=== PATIENT | female | born 1965 | race Caucasian/White ===

== ENCOUNTER 2020-10-28 07:30 | Day surgery (SDC) | payer OTHER, SELFPAY ==
[2020-10-24 13:09] VITALS: BMI 26.4
--- NOTE | 2020-10-26 15:30 | HO.ANESPROP2 ---
Documented by User: Mabel Morin 10/26/20 15:31 HPI - Anesthesia Eval Consult details Narrative: 55yo F for Colonoscopy [facility] Past Medical History Medical History Cancer History of cellulitis Hx of Sjogren's disease Surgical History Surgical History H/O colonoscopy Hx of hysterectomy Social History Social History Smoking Status: Former smoker Smoking Quit Date: >10 yr Use of substances other than those prescribed or required for medical reasons: No Advance Directives Information Provided: No Meds Allergies Allergy/AdvReac Type Severity Reaction Status Date / Time No Known Allergies Allergy Verified 10/24/20 13:12 Home Medications Medication Instructions Recorded Confirmed Type No Known Home Meds 10/24/20 10/24/20 History Exam Exam Date and Time: October 26, 2020 1530 Height,Weight and Vital Signs: Height 5 ft 5.25 in Weight 72.575 kg Assessment and Plan Assessment Anesthesia Assessment: Chart Reviewed Documented by User: Tammy Akbar 10/28/20 08:25 [facility] Past Medical History Medical History Cancer History of cellulitis Hx of Sjogren's disease Family History Family history of problems with anesthesia: No Surgical History Surgical History H/O colonoscopy Hx of hysterectomy History of Problems with Anesthesia: No Social History Social History Smoking Status: Former smoker Smoking Quit Date: >10 yr Use of substances other than those prescribed or required for medical reasons: No Advance Directives Information Provided: No Meds Allergies Allergy/AdvReac Type Severity Reaction Status Date / Time No Known Allergies Allergy Verified 10/24/20 13:12 Home Medications Medication Instructions Recorded Confirmed Type No Known Home Meds 10/24/20 10/24/20 History Exam Height,Weight and Vital Signs: Vital Signs Temp Pulse Resp BP Pulse Ox 10/28/20 08:05 96.8 F 98 16 133/77 100 Airway Mallampati Class: II TM Dist: >3cm Neck ROM: Full Partial: Lower Loose/Missing/Broken Teeth: No Heart: RRR Lungs: CTAB Assessment and Plan Assessment Anesthesia Assessment: Anesthesia Plan Discussed and Chart Reviewed Final Anesthetic Review NPO: Yes ASA Class: II Final Preanesthetic Review: No Changes in Pt Med Stat, Meds/Allgs Chart Reviewed, Consent Obtained/Reviewed and Anes Risks/Benef Reviewed Patient Risk: Low Procedure Risk: Low Anesthetic Plan Anesthetic Plan: MAC: Disposition: Standard PACU
[2020-10-28 08:05] VITALS: BP 133/77; PULSE 98; RESP 16; TEMP 36; O2SAT 100
[2020-10-28 09:36] VITALS: BP 94/49; PULSE 77; RESP 12; TEMP 36.5; O2SAT 99
--- NOTE | 2020-10-28 09:36 | PM.OP ---
Brief Operative Note Date of Service: 10/28/20 Pre-op diagnosis: Screening, History of colon polyps Post-op diagnosis: other (Diverticulosis, Internal hemorrhoids) Procedure: Colonoscopy to cecum and TI Surgeon: Levon Serrano Anesthesia: MAC Estimated blood loss (mL): 0 Pathology: none sent Condition: stable Disposition: PACU
[2020-10-28 09:51] VITALS: BP 104/59; PULSE 76; RESP 16; O2SAT 100
--- NOTE | 2020-10-28 09:55 | OP_ITS ---
SURGEON: Levon Serrano MD INDICATIONS: The patient presents for followup of colorectal cancer screening and personal history of tubular adenoma of the colon. Full consent was obtained from her for this, including risks of bleeding and perforation. PREOPERATIVE DIAGNOSIS: POSTOPERATIVE DIAGNOSIS: PROCEDURE PERFORMED: Colonoscopy to the cecum and terminal ileum. ESTIMATED BLOOD LOSS: COMPLICATIONS: ANESTHESIA: Monitored anesthesia care. ASSISTANTS: SPECIMENS: PREOPERATIVE DIAGNOSES: Colorectal cancer screening and personal history of tubular adenoma of the colon. POSTOPERATIVE DIAGNOSES: Colorectal cancer screening and personal history of tubular adenoma of the colon, sigmoid diverticulosis, and small internal hemorrhoids. DESCRIPTION OF PROCEDURE: The patient was placed in the left lateral decubitus position. The digital rectal exam revealed no abnormalities. The Olympus video pediatric colonoscope was entered into the rectum and advanced easily to the cecum. Once in the cecum, I did identify normal-appearing cecal pouch with appendiceal orifice and a normal-appearing ileocecal valve. The terminal ileum was cannulated and appeared normal. The scope was withdrawn back in the colon. The entire cecum and ileocecal valve appeared normal. The scope was slowly withdrawn assessing all mucosal surfaces carefully. Preparation was excellent. I did not visualize any sign of polyps, colitis, nor angiodysplasia. There was a mild amount of sigmoid diverticulosis. In the rectum, scope was retroflexed visualizing minimal internal hemorrhoids, but no other pathology. The rectal mucosa appeared normal. The scope was straightened out and withdrawn from the patient. She tolerated the procedure well and was returned to the recovery area in stable condition. IMPRESSION: 1. Mild sigmoid diverticulosis. 2. Minimal internal hemorrhoids. PLAN: I would recommend a repeat colonoscopy in 5 years for further screening given her previous history of tubular adenoma. She will otherwise see me on a p.r.n. basis. MD MAYANK Lebron/WILL / [phone]
[2020-10-28 09:57] VITALS: BP 96/63; PULSE 72; RESP 18; O2SAT 99
--- NOTE | 2020-10-28 10:00 | HO.POSTANES ---
Post Anesthesia Evaluation Post Anesthesia Evaluation Vital Signs: Vital Signs Temp Pulse Resp BP Pulse Ox 10/28/20 09:57 72 18 96/63 99 10/28/20 09:51 76 16 104/59 L 100 10/28/20 09:36 97.7 F 77 12 94/49 L 99 10/28/20 08:05 96.8 F 98 16 133/77 100 Anesthesia: Monitored Mental Status: Awake Pain Control: Satisfactory Nausea/Vomiting: None Hydration: Adequate Anesthesia-Related Issues: No Anes. Related Issues
== END 2020-10-28 10:24 | disposition home or self-care (01) ==
PROVIDERS: PCP Internal Medicine; Visit Provider Internal Medicine
PROC: 0DJD8ZZ Inspection of Lower Intestinal Tract, Via Natural or Artificial Opening Endoscopic (ICD-10-PCS; CPT 45378; principal; 2020-10-28 08:40)
DX: Z12.11 Encounter for screening for malignant neoplasm of colon (principal); Z86.010 Personal history of colon polyps; K57.30 Diverticulosis of large intestine without perforation or abscess without bleeding; K64.8 Other hemorrhoids; Z85.41 Personal history of malignant neoplasm of cervix uteri; Z90.710 Acquired absence of both cervix and uterus; Z87.891 Personal history of nicotine dependence
CPT/HCPCS: 45378

== ENCOUNTER 2021-07-25 11:03 | Outpatient (REF) | payer OTHER, SELFPAY ==
[2021-07-25 11:06] LABS: MANUAL DIFF FLAG NO
[2021-07-25 11:30] LABS: Basophils Absolute Auto 0.1 X10*3/uL (0.0-0.2); Eosinophils Absolute Auto 0.2 X10*3/uL (0.0-0.4); Eosinophils Percent Auto 2.6 % (0-4); Hemoglobin 14.2 g/dl (12.0-16.0); Imm Gran Abs Auto 0.02 X10*3/uL (0.00-0.03); Imm Gran Pct Auto 0.3 % (0.0-0.4); Lymphocytes Absolute Auto 1.7 X10*3/uL (1.2-4.9); Lymphocytes Percent Auto 28.6 % (20-40); Mean Corpuscular Hemoglobin 30.7 pg (27.0-33.0); Mean Corpuscular Volume 93.1 fL (80-98); Mean Platelet Volume 11.6 fL (9.4-12.3); Monocytes Absolute Auto 0.5 X10*3/uL (0.1-1.2); Monocytes Percent Auto 8.4 % (2-11); Neutrophils Absolute Auto 3.4 X10*3/uL (2.0-8.3); Neutrophils Percent Auto 59.1 % (45-73); Platelet Count 308 X10*3/uL (160-400); Red Blood Count 4.62 X10*6/uL (4.20-5.50); Red Cell Distribution Width 12.5 % (11.0-16.0); White Blood Count 5.8 X10*3/uL (4.8-10.8)
[2021-07-25 12:09] LABS: Alanine Aminotransferase 10 U/L (0-31); Albumin Level 4.3 g/dL (3.5-5.0); Alkaline Phosphatase 37 U/L (39-117); Anion Gap 11 (12-20); Aspartate Amino Transferase 19 U/L (5-31); Bilirubin Total 0.3 mg/dL (0.0-1.0); Blood Urea Nitrogen 14 mg/dL (9-16); Calcium 9.5 mg/dL (8.4-10.2); Carbon Dioxide 23 mmol/L (22-29); Chloride 109 mmol/L (96-108); Cholesterol 229 mg/dL; Estimated Glomerular Filt Rate > 60; Glucose Fasting 97 mg/dL (60-99); HDL Cholesterol 64 mg/dL; LDL Cholesterol Calculated 148 mg/dl; Potassium 4.2 mmol/L (3.3-5.1); Sodium 139 mmol/L (135-145); Total Protein 7.3 g/dL (6.5-8.0); Triglycerides 89 mg/dL
[2021-07-25 12:15] LABS: Vitamin D 25-OH Total 28.5 ng/mL (>30)
[2021-07-25 12:43] LABS: Appearance Urine CLEAR; Color Urine YELLOW; Glucose Urine UA NEG (NEG); Leukocyte Esterase Urine NEG (NEG); Nitrite Urine NEG (NEG); Specific Gravity - Urine 1.025 (1.005-1.025); Urine Blood NEG (NEG); Urine Ketones NEG (NEG); Urine Protein NEG (NEG-TRACE)
== END 2021-07-25 11:04 | disposition home or self-care (01) ==
LOC: HO.LNP 11:03
PROVIDERS: Visit Provider Internal Medicine
DX: Z00.00 Encounter for general adult medical examination without abnormal findings (principal); M35.00 Sjogren syndrome, unspecified; E78.00 Pure hypercholesterolemia, unspecified; E55.9 Vitamin D deficiency, unspecified
CPT/HCPCS: 80053; 80061; 81003; 82306; 85025

== ENCOUNTER 2021-09-27 10:55 | Outpatient (REF) | payer OTHER, SELFPAY ==
--- NOTE | ~2021-09-27 | MM_ITS ---
EXAMINATION: MM SCREENING DIGITAL BREAST TOMOSYNTHESIS, BILATERAL CLINICAL INFORMATION: Screening. Asymptomatic. The lifetime risk of breast cancer based on the Tyrer-Cuzick Model is 3%. COMPARISON: Mammography: 08/13/2020, 08/08/2019, 08/01/2018 TECHNIQUE: Digital breast tomosynthesis is performed in both the craniocaudal and mediolateral oblique views along with computer-aided detection (CAD). Synthesized 2D images are generated from the tomosynthesis. FINDINGS: There are scattered areas of fibroglandular density (ACR BI-RADS breast composition Category b). There are no significant masses, abnormal calcifications, or other abnormalities. Parenchymal pattern is similar to prior studies. No developing density. No significant changes. MM/MM tomosynthesis screening BI IMPRESSION: No mammographic evidence of malignancy. ASSESSMENT: BI-RADS 1: Negative RECOMMENDATION: Routine annual mammography screening. This patient's information was entered into a reminder system with a target due date for their next mammogram.
== END 2021-09-27 10:56 | disposition home or self-care (01) ==
LOC: HO.MAMMO 10:55
PROVIDERS: PCP Nurse Practitioner Adult Health; Visit Provider Internal Medicine
DX: Z12.31 Encounter for screening mammogram for malignant neoplasm of breast (principal)
CPT/HCPCS: 77063; 77067

== ENCOUNTER 2022-07-30 11:33 | Outpatient (REF) | payer BC, SELFPAY ==
[2022-07-30 11:40] LABS: MANUAL DIFF FLAG NO
[2022-07-30 12:18] LABS: Basophils Absolute Auto 0.1 X10*3/uL (0.0-0.2); Basophils Percent Auto 1.1 % (0-2); Eosinophils Absolute Auto 0.2 X10*3/uL (0.0-0.4); Eosinophils Percent Auto 3.5 % (0-4); Hematocrit 44.4 % (37.0-47.0); Hemoglobin 14.5 g/dl (12.0-16.0); Imm Gran Abs Auto 0.02 X10*3/uL (0.00-0.03); Imm Gran Pct Auto 0.4 % (0.0-0.4); Lymphocytes Absolute Auto 1.6 X10*3/uL (1.2-4.9); Lymphocytes Percent Auto 28.7 % (20-40); Mean Corpuscular HGB Conc 32.7 g/dl (31.0-35.0); Mean Corpuscular Hemoglobin 30.1 pg (27.0-33.0); Mean Corpuscular Volume 92.1 fL (80.0-98.0); Mean Platelet Volume 11.2 fL (9.4-12.3); Monocytes Absolute Auto 0.6 X10*3/uL (0.1-1.2); Monocytes Percent Auto 10.4 % (2-11); Neutrophils Percent Auto 55.9 % (45-73); Platelet Count 286 X10*3/uL (160-400); Red Blood Count 4.82 X10*6/uL (4.20-5.50); Red Cell Distribution Width 12.9 % (11.0-16.0); White Blood Count 5.4 X10*3/uL (4.8-10.8)
[2022-07-30 12:20] LABS: Appearance Urine Clear; Color Urine Yellow; Glucose Urine UA Negative (Negative); Leukocyte Esterase Urine Negative (Negative); Nitrite Urine Negative (Negative); PH 5.5 (5.0-9.0); Specific Gravity - Urine 1.015 (1.005-1.025); Urine Blood Negative (Negative); Urine Ketones Negative (Negative); Urine Protein Negative (Neg-Trace)
[2022-07-30 12:27] LABS: Bacteria Urine None Seen (None Seen); Hyaline Casts Urine 0-2 /LPF (0-2); RBC Urine 0-2 /HPF (0-2); Squamous Epithelial Cell Urine 0-2 /HPF (0-2); WBC Urine 0-5 /HPF (0-5)
[2022-07-30 12:31] LABS: Alanine Aminotransferase 11 U/L (0-31); Albumin Level 4.2 g/dL (3.5-5.0); Alkaline Phosphatase 34 U/L (39-117); Anion Gap 14 (12-20); Aspartate Amino Transferase 18 U/L (5-31); Bilirubin Total 0.3 mg/dL (0.0-1.0); Blood Urea Nitrogen 12 mg/dL (9-16); Calcium 9.3 mg/dL (8.4-10.2); Carbon Dioxide 23 mmol/L (22-29); Chloride 109 mmol/L (96-108); Cholesterol 262 mg/dL; Estimated Glomerular Filt Rate > 60; Glucose Fasting 97 mg/dL (60-99); HDL Cholesterol 65 mg/dL; LDL Cholesterol Calculated 177 mg/dl; Potassium 4.5 mmol/L (3.3-5.1); Sodium 141 mmol/L (135-145); Total Protein 7.4 g/dL (6.5-8.0); Triglycerides 101 mg/dL
[2022-07-30 12:53] LABS: Vitamin D 25-OH Total 31.9 ng/mL (>30)
== END 2022-07-30 11:34 | disposition home or self-care (01) ==
LOC: HO.LNP 11:33
PROVIDERS: Visit Provider Internal Medicine
DX: Z00.00 Encounter for general adult medical examination without abnormal findings (principal); E78.00 Pure hypercholesterolemia, unspecified; E55.9 Vitamin D deficiency, unspecified; M35.00 Sjogren syndrome, unspecified
CPT/HCPCS: 80053; 80061; 81001; 82306; 85025

== ENCOUNTER 2022-10-03 10:52 | Outpatient (REF) | payer BC, SELFPAY ==
--- NOTE | ~2022-10-03 | MM_ITS ---
EXAMINATION: MM SCREENING DIGITAL BREAST TOMOSYNTHESIS, BILATERAL CLINICAL INFORMATION: Screening. Asymptomatic. COMPARISON: Mammography: 09/27/2021, 08/13/2020, 08/08/2019 TECHNIQUE: Digital breast tomosynthesis is performed in both the craniocaudal and mediolateral oblique views along with computer-aided detection (CAD). Synthesized 2D images are generated from the tomosynthesis. FINDINGS: There are scattered areas of fibroglandular density (ACR BI-RADS breast composition Category b). There are no significant masses, abnormal calcifications, or other abnormalities. Parenchymal pattern is similar to prior studies. No developing density. No architectural changes. The axilla and skin contours are unremarkable. No significant changes. MM/MM tomosynthesis screening BI IMPRESSION: No mammographic evidence of malignancy. ASSESSMENT: BI-RADS 1: Negative RECOMMENDATION: Routine annual mammography screening. This patient's information was entered into a reminder system with a target due date for their next mammogram.
== END 2022-10-03 10:53 | disposition home or self-care (01) ==
LOC: HO.MAMMO 10:52
PROVIDERS: PCP Internal Medicine; Visit Provider Nurse Practitioner Adult Health
DX: Z12.31 Encounter for screening mammogram for malignant neoplasm of breast (principal)
CPT/HCPCS: 77063; 77067

== ENCOUNTER 2023-07-29 10:26 | Outpatient (REF) | payer BC, SELFPAY ==
[2023-07-29 10:30] LABS: MANUAL DIFF FLAG NO
[2023-07-29 11:15] LABS: Basophils Absolute Auto 0.1 X10*3/uL (0.0-0.2); Basophils Percent Auto 1.1 % (0-2); Eosinophils Absolute Auto 0.2 X10*3/uL (0.0-0.4); Eosinophils Percent Auto 2.9 % (0-4); Hematocrit 45.1 % (37.0-47.0); Hemoglobin 14.4 g/dl (12.0-16.0); Imm Gran Abs Auto 0.02 X10*3/uL (0.00-0.03); Imm Gran Pct Auto 0.3 % (0.0-0.4); Lymphocytes Absolute Auto 1.7 X10*3/uL (1.2-4.9); Lymphocytes Percent Auto 27.5 % (20-40); Mean Corpuscular HGB Conc 31.9 g/dl (31.0-35.0); Mean Corpuscular Hemoglobin 30.6 pg (27.0-33.0); Mean Platelet Volume 11.6 fL (9.4-12.3); Monocytes Absolute Auto 0.5 X10*3/uL (0.1-1.2); Monocytes Percent Auto 7.9 % (2-11); Neutrophils Absolute Auto 3.8 x10*3/uL (2.0-8.3); Neutrophils Percent Auto 60.3 % (45-73); Platelet Count 291 X10*3/uL (160-400); Red Cell Distribution Width 12.8 % (11.0-16.0); White Blood Count 6.3 X10*3/uL (4.8-10.8)
[2023-07-29 11:27] LABS: Appearance Urine Clear; Color Urine Yellow; Glucose Urine UA Negative (Negative); Leukocyte Esterase Urine Negative (Negative); Nitrite Urine Negative (Negative); Specific Gravity - Urine 1.015 (1.005-1.025); Urine Blood Negative (Negative); Urine Ketones Negative (Negative); Urine Protein Negative (Neg-Trace)
[2023-07-29 11:32] LABS: Bacteria Urine None Seen (None Seen); Hyaline Casts Urine 0-2 /LPF (0-2); RBC Urine 0-2 /HPF (0-2); Squamous Epithelial Cell Urine 0-2 /HPF (0-2); WBC Urine 0-5 /HPF (0-5)
[2023-07-29 11:33] LABS: Alanine Aminotransferase 10 U/L (0-31); Albumin Level 4.1 g/dL (3.5-5.0); Alkaline Phosphatase 37 U/L (39-117); Anion Gap 12 (12-20); Aspartate Amino Transferase 25 U/L (5-31); Bilirubin Total 0.3 mg/dL (0.0-1.0); Blood Urea Nitrogen 20 mg/dL (9-16); Calcium 9.4 mg/dL (8.4-10.2); Carbon Dioxide 23 mmol/L (22-29); Chloride 110 mmol/L (96-108); Cholesterol 257 mg/dL (<200); Estimated Glomerular Filt Rate > 60; Glucose Fasting 91 mg/dL (60-99); HDL Cholesterol 64 mg/dL (>40); LDL Cholesterol Calculated 166 mg/dL (<100); Potassium 4.5 mmol/L (3.3-5.1); Sodium 140 mmol/L (135-145); Total Protein 7.3 g/dL (6.5-8.0); Triglycerides 136 mg/dL (<150)
[2023-07-29 11:49] LABS: Vitamin D 25-OH Total 47.1 ng/mL (>30)
== END 2023-07-29 10:27 | disposition home or self-care (01) ==
LOC: HO.LNP 10:26
PROVIDERS: PCP Internal Medicine; Visit Provider Internal Medicine
DX: Z00.00 Encounter for general adult medical examination without abnormal findings (principal); E78.00 Pure hypercholesterolemia, unspecified; E55.9 Vitamin D deficiency, unspecified
CPT/HCPCS: 80053; 80061; 81001; 82306; 85025

== ENCOUNTER 2023-10-07 07:35 | Outpatient (REF) | payer BC, SELFPAY | END 2023-10-07 07:36 | disposition home or self-care (01) | LOC: HO.MAMMO 07:35 | PROVIDERS: PCP Internal Medicine; Visit Provider Internal Medicine | DX: Z12.31 Encounter for screening mammogram for malignant neoplasm of breast (principal) | CPT/HCPCS: 77063; 77067 ==

== ENCOUNTER → 2023-10-07 07:45 | Outpatient (BNV) | payer BC, SELFPAY | PROVIDERS: PCP Internal Medicine; Visit Provider Radiology Diagnostic Radiology | DX: Z12.31 Encounter for screening mammogram for malignant neoplasm of breast (principal) | CPT/HCPCS: 77063; 77067 ==

== ENCOUNTER 2024-05-04 08:00 | Outpatient (RCR) | payer BC, SELFPAY | END 2024-05-12 10:39 | disposition home or self-care (01) | LOC: HO.PT 08:00 | PROVIDERS: PCP Internal Medicine; Visit Provider Physician Assistant | DX: M25.511 Pain in right shoulder (principal) | CPT/HCPCS: 97012; 97035; 97140; 97162; 97530 ==

== ENCOUNTER 2025-07-23 12:15 | Outpatient (REF) | payer OTHER, SELFPAY ==
--- OUTSIDE RECORDS SUMMARY | 2024-03-06 06:31 | XMS_ITS ---
Author Organization Sj Kent MD Address [address] [place] [phone] Care Team Providers Care Nutrition Educator Name Role Phone Sj Kent Primary Care Provider REASON FOR VISIT tetanus Encounters Encounter Location Date Provider Diagnosis Sj Kent MD [address] [facility] [address] [place] [phone] 03/06/2024 Sj Kent Plan Of Treatment Next Appt Details Provider Name:Sj Andrade ier, 07/30/2025 02:30:00 PM, [address], [address] [place] [address], [phone], Progress Notes * Lindsay CRUZ ADOB:1964 (58 yo F)Acc No.[id number]:03/06/2024 Patient: Shi Lindsay crook :1965 A ge:58 Y S ex:Female Address:[address] [place] [phone] * true * Date: Generated for Celia blake/Tiffani/Belen on: 0 07/23/2025 12:48 PM EDT
--- OUTSIDE RECORDS SUMMARY | 2024-08-27 05:45 | XMS_ITS ---
Author Organization Sj Kent MD Address [address] [place] [phone] Care Team Providers Care Neurosurgical Nurse Practitioner Name Role Phone Sj Kent Primary Care Provider [phone] Allergies No Known Allergies REASON FOR VISIT stress anxiety x2 weeks, Looking for a new job and has to find a new apartment Medications Medication SIG (Take, Route, Frequency, Duration) Notes Start Date End Date Status Cyclobenzaprine HCl 5 MG 1 tablet at bed time as needed Orally twice a day for 10 days 03/06/2024 Not-Taking Meloxicam 15 MG 1 tablet Orally Once a day for 30 days Not-Taking Nystatin-Triamcinolone 850015-3.1 UNIT/GM 1 application Externally Twice a day for 10 days 07/31/2021 Not-Taking Amoxicillin-Pot Clavulanate 875-125 MG 1 tablet Orally every 12 hrs for 10 day(s) 10/29/2022 Not-Taking Doxycycline Hyclate 100 MG 1 capsule Ora lly Twice a day for 14 days 04/27/2022 Not-Taking Escitalopram Oxalate 10 MG 1 tablet Oral ly Once a day for 30 day(s) 08/27/2024 Active Cyclobenzaprine HCl 5 MG 1 tablet as nee ded Orally Three times a day Not-Taking Ibuprofen 200 MG 1 tablet with food o r milk as needed Orally Three times a day Active Immunizations Vaccine Route Administration Date Status Comme nts Fluarix Quadrivalent - 150 Unknown 08/27/2024 Refused Problems Problem Type SNOMED Code ICD Code Onset Dates Problem Status W/U Status Risk Notes Problem [id number] Dysthymia (F34.1) Active confirmed Vital Signs Blood pressure systolic 128 mm Hg 08/27/20 24 Blood pressure diastolic 80 mm Hg 024 Height 64 in 08/27/2024 Weight 168 lbs 08/27/2024 BMI 28.83 kg/m2 08/27/2024 weight is up 3 pounds since 03-06-24 Encounters Encounter Location Date Provider Diagnosis Sj Kent MD [address] [place] [address] [place] [phone] 08/27/2024 Sj Kent Dysthymia F34.1 Assessments Encounter Date Diagnosis (ICD Code) Assessment Notes Treatment Notes Treatment Clinical Notes Section Notes 08/27/2024 Dysthymia (ICD-10 - F34.1) patient verbalized understanding pf medication and directions for use Plan Of Treatment Medication Medication Name Sig Start Date Stop Date Notes Escitalopram Oxalate 10 MG 1 tablet Oral ly Once a day for 30 day(s) 08/27/2024 Treatment Notes Assessment Notes Dysthymia patient verbalized u nderstanding pf medication and directions for use Next Appt Details Follow Up: 2 Weeks, Reason: Provider Name:Sj Andrade ier, 07/30/2025 02:30:00 PM, [address] [place] [address], Suite [facility], [place], [place], [phone], Progress Notes * Lindsay CRUZ ADOB:1964 (59 yo F)Acc No.[id number]:08/27/2024 Progress Notes Patient: Shi Lindsay crook Provider: Hussain Kent MD :1965 A ge:59 Y S ex:Female Date:08/27/2024 Address:[address] [place], [place] [phone] Subjective: * Chief Complaints: * S tress anxiety x2 weeksLooking for a new job and has to find a new apartment * HPI: D epression Screening: PHQ-9 L ittle interest or pleasure in doing things S everal days, F eeling down, depressed, or hopeless N early every day, T rouble falling or staying asleep, or sleeping too much S everal days, F eeling tired or having little energy S everal days, P oor appetite or overeating S everal days, F eeling bad about yourself or that you are a failure, or have let yourself or your family down S everal days, T rouble concentrating on things, such as reading the newspaper or watching television N ot at all, M oving or speaking so slowly that other people could have noticed; or the opposite, being so fidgety or restless that you have been moving around a lot more than usual N ot at all, T houghts that you would be better off or of hurting yourself in some way N ot at all, T otal Score 8 , I nterpretation M ild Depression. S ymptom(s): patient is a 59 yo female lost her job in january. got a job in [employer]. had to quit it due to stress. had been working 7 days/ the responsibilites were just overwhelming.complainingof stress for 2 weeks. * ROS: G eneral/Constitutional: Denies C hills. D enies F atigue. D enies F ever. D enies H eadache. E NT: Patient denies d ecreased sense of smell , any loss of taste , sore throat. D enies S ore throat. R espiratory: Denies C ough. D enies S hortness of breath at rest. D enies S hortness of breath with exertion. G astrointestinal: Denies D iarrhea. D enies N ausea. M usculoskeletal: Patient denies m uscle aches. P eripheral Vascular: Patient denies r ed and blue toes. P sychiatric: Admits A nxiety. A dmits D epressed mood. A dmits S tressors. D enies S ubstance abuse. D enies S uicidal thoughts. ? * Medical History: * Surgical History: * Hospitalization/Major Diagno stic Procedure: * Medications: T akingIbuprofen 200 MG Tablet 1 tablet with food or milk as needed Orally Three times a dayTaking Ibuprofen 200 MG Tablet 1 tablet with food or milk as needed Orally Three times a dayNot-Taking/PRNMeloxicam 15 MG Tablet 1 tablet Orally Once a dayCyclobenzaprine HCl 5 MG Tablet 1 tablet at bedtime as needed Orally twice a dayAmoxicillin-Pot Clavulanate 875-125 MG Tablet 1 tablet Orally every 12 hrsNystatin-Triamcinolone 781522-0.1 UNIT/GM Cream 1 application Externally Twice a dayDoxycycline Hyclate 100 MG Capsule 1 capsule Orally Twice a dayCyclobenzaprine HCl 5 MG Tablet 1 tablet as needed Orally Three times a dayMedication List reviewed and reconciled with the patientNot-Taking/PRN Meloxicam 15 MG Tablet 1 tablet Orally Once a dayNot-Taking/PRN Cyclobenzaprine HCl 5 MG Tablet 1 tablet at bedtime as needed Orally twice a dayNot-Taking/PRN Amoxicillin-Pot Clavulanate 875-125 MG Tablet 1 tablet Orally every 12 hrsNot-Taking/PRN Nystatin-Triamcinolone 919144-5.1 UNIT/GM Cream 1 application Externally Twice a dayNot-Taking/PRN Doxycycline Hyclate 100 MG Capsule 1 capsule Orally Twice a dayNot-Taking/PRN Cyclobenzaprine HCl 5 MG Tablet 1 tablet as needed Orally Three times a dayMedication List reviewed and reconciled with the patient * Allergies: N .K.D.A.yes[Allergies Verified] Objective: * Vitals: H t: 64, Wt:168, BMI:28.83, BP:128/80 weight is up 3 pounds since 03-06-24. * Examination: G eneral Examination: GENERAL APPEARANCE: alert, well hydrated, depressed appearing. crying. SKIN: good turgor. HEART: regular rate and rhythm, no murmurs, rubs, gallops. LUNGS: no wheezes, rales, rhonchi, good air movement, clear to auscultation bilaterally. Assessment: * Assessment: 1. D ysthymia - F34.1 (Primary) Plan: * Treatment: * Immunizations: Fluarix Quadrivalent - 150 (Not administered - Refused: Patient decision) * Procedure Codes: * Follow Up: 2 Weeks * * Sign off status: Completed true * Provider: Hussain Kent MD Date: 1 Generated for Virali hayden/Brieng/eTransmitting on: 0 07/23/2025 12:48 PM EDT History and Physical Notes * HPI (History of Present Illness) Category Sub-Category Detail Notes Category Not es Symptom(s) patient is a 59 yo female lost her job in january. got a job in [employer]. had to quit it due to stress. had been working 7 days/ the responsibilites were just overwhelming.complainin gof stress for 2 weeks Depression Screening PHQ-9 Little interest or pleasure in doing things: Several days Feeling down, depressed, or hopeless: Ne tevin every day Trouble falling or staying asleep, or sl eeping too much: Several days Feeling tired or having little energy: S everal days Poor appetite or overeating: Several day s Feeling bad about yourself o r that you are a failure, or have let yourself or your family down: Several days Trouble concentrating on thi ngs, such as reading the newspaper or watching television: Not at all Moving or speaking so slowly that other people could have noticed; or the opposite, being so fidgety or restless that you have been moving around a lot more than usual: Not at all Thoughts that you would be b kourtney off or of hurting yourself in some way: Not at all Total Score: 8 Interpretation: Mild Depression Examination Category Sub-Category Detail Notes Category Not es General Examination GENERAL APPEARANCE: alert, w ell hydrated, depressed appearing. crying HEART: regular rate and rhy thm, no murmurs, rubs, gallops LUNGS: no wheezes, rales, r honchi, good air movement, clear to auscultation bilaterally SKIN: good turgor
--- OUTSIDE RECORDS SUMMARY | 2024-09-10 06:30 | XMS_ITS ---
Author Organization Sj Kent MD Address [address] [place] [phone] Care Team Providers Care Store Product Demonstrator Name Role Phone Sj Kent Primary Care Provider Allergies No Known Allergies REASON FOR VISIT 2 week f/u depression Medications Medication SIG (Take, Route, Frequency, Duration) Notes Start Date End Date Status Escitalopram Oxalate 10 MG 1 tablet Oral ly Once a day for 30 day(s) 08/27/2024 Active Cyclobenzaprine HCl 5 MG 1 tablet at bed time as needed Orally twice a day for 10 days 03/06/2024 Not-Taking Ibuprofen 200 MG 1 tablet with food o r milk as needed Orally Three times a day Active Meloxicam 15 MG 1 tablet Orally Once a day for 30 days Not-Taking Escitalopram Oxalate 5 MG 1 tablet Orall y Once a day for 30 days 09/10/2024 Active Cyclobenzaprine HCl 5 MG 1 tablet as nee ded Orally Three times a day Not-Taking Amoxicillin-Pot Clavulanate 875-125 MG 1 tablet Orally every 12 hrs for 10 day(s) 10/29/2022 Not-Taking Nystatin-Triamcinolone 624126-9.1 UNIT/GM 1 application Externally Twice a day for 10 days 07/31/2021 Not-Taking Doxycycline Hyclate 100 MG 1 capsule Ora lly Twice a day for 14 days 04/27/2022 Not-Taking Vital Signs Blood pressure systolic 138 mm Hg 09/10/20 Blood pressure diastolic 70 mm Hg 024 Height 64 in 09/10/2024 Weight 165 lbs 09/10/2024 BMI 28.32 kg/m2 09/10/2024 weight is down 3 pounds [facility] e 08-27-24 Encounters Encounter Location Date Provider Diagnosis Sj Kent MD [address] [place] [address] [place] [phone] 09/10/2024 Sj Kent Dysthymia F34.1 and Lethargy R53.83 Assessments Encounter Date Diagnosis (ICD Code) Assessment Notes Treatment Notes Treatment Clinical Notes Section Notes 09/10/2024 Dysthymia (ICD-10 - F34.1) patient verbalized understanding of medication ad directions for use 09/10/2024 Lethargy (ICD-10 - R53.83) will continue to monitor hopefully by decreasing the meds will have the benefits without the side effects Plan Of Treatment Medication Medication Name Sig Start Date Stop Date Notes Escitalopram Oxalate 5 MG 1 tablet Orall y Once a day for 30 days 09/10/2024 Treatment Notes Assessment Notes Dysthymia patient verbalized u nderstanding of medication ad directions for use Lethargy will continue to mon itor Next Appt Details Follow Up: 2 Months, Reason: Provider Name:Sj Andrade ier, 07/30/2025 02:30:00 PM, [address] [place] [address] Drive, [address], [place], [place], [phone], Progress Notes * Lindsay CRUZ ADOB:1964 (59 yo F)Acc No.[id number]:09/10/2024 Progress Notes Patient: Lindsay Reyes Provider: Hussain Kent MD :1965 A ge:59 Y S ex:Female Date:09/10/2024 Address:[address] [place], [place] [phone] Subjective: * Chief Complaints: * 2 week f/u depression * HPI: S ymptom(s): patient is a 59 yo female here for 2 week follow up depression, feeling better just tired. taking it at night and is better. has started to apply for jobs again. * ROS: G eneral/Constitutional: Denies C hills. [...] r ed and blue toes. P sychiatric: Denies A nxiety. D enies D epressed mood. ? * Medical History: * Surgical History: * Hospitalization/Major Diagno stic Procedure: * Medications: T akingIbuprofen 200 MG Tablet 1 tablet with food or milk as needed Orally Three times a dayEscitalopram Oxalate 10 MG Tablet 1 tablet Orally Once a dayTaking Ibuprofen 200 MG Tablet 1 tablet with food or milk as needed Orally Three times a dayTaking Escitalopram Oxalate 10 MG Tablet 1 tablet Orally Once a dayNot- Taking/PRNMeloxicam 15 MG Tablet 1 tablet Orally Once a dayCyclobenzaprine HCl 5 MG Tablet 1 tablet at bedtime as needed Orally twice a dayAmoxicillin-Pot Clavulanate 875-125 MG Tablet 1 tablet Orally every 12 hrsNystatin-Triamcinolone 230857-9.1 UNIT/GM Cream 1 application Externally Twice a dayDoxycycline Hyclate 100 MG Capsule 1 capsule Orally Twice a dayCyclobenzaprine HCl 5 MG Tablet 1 tablet as needed Orally Three times a dayNot-Taking/PRN Meloxicam 15 MG Tablet 1 tablet Orally Once a dayNot- Taking/PRN Cyclobenzaprine HCl 5 MG Tablet 1 tablet at bedtime as needed Orally twice a dayNot-Taking/PRN Amoxicillin-Pot Clavulanate 875-125 MG Tablet 1 tablet Orally every 12 hrsNot-Taking/PRN Nystatin-Triamcinolone 838267-3.1 UNIT/GM Cream 1 application Externally Twice a dayNot-Taking/PRN Doxycycline Hyclate 100 MG Capsule 1 capsule Orally Twice a dayNot-Taking/PRN Cyclobenzaprine HCl 5 MG Tablet 1 tablet as needed Orally Three times a day * Allergies: N .K.D.A.yes[Allergies Verified] Objective: * Vitals: H t: 64, Wt: 165, BMI:28.32, BP:138/70, Wt-k.84 weight is down 3 pounds since 08-27-24. * Examination: G eneral Examination: GENERAL APPEARANCE: a lert, well hydrated, in no distress.? HEAD: n ormocephalic. HEART: r egular rate and rhythm , no murmurs, rubs, gallops. LUNGS: c lear to auscultation bilaterally , good air movement , no wheezes, rales, rhonchi. Assessment: * Assessment: 1. D ysthymia - F34.1 (Primary) 2 . L ethargy - R53.83 Plan: * Treatment: 2. L ethargy Notes: will continue to monitor Clinical Notes: hopefully by decreasing the meds will have the benefits without the side effects? * Procedure Codes: * Follow Up: 2 Months * * Sign off status: Completed true * Provider: Hussain Kent MD Date: Generated for Celia balke/Tiffani/eTldsmitting on: 0 07/23/2025 12:48 PM EDT History and Physical Notes * HPI (History of Present Illness) Category Sub-Category Detail Notes Category Not es Symptom(s) patient is a 59 yo female here for 2 week follow up depression, feeling better just tired. taking it at night and is better. has started to apply for jobs again. Examination Category Sub-Category Detail Notes Category Not es General Examination GENERAL APPEARANCE: alert, w ell hydrated, in no distress HEAD: normocephalic HEART: regular rate and rhy thm , no murmurs, rubs, gallops LUNGS: clear to auscultatio n bilaterally , good air movement , no wheezes, rales, rhonchi
--- OUTSIDE RECORDS SUMMARY | 2024-10-22 12:45 | XMS_ITS ---
Author Organization Sj Kent MD Address [address] [place] [phone] Care Team Providers Care Administrative Assistant Office Manager Name Role Phone Sj Kent Primary Care Provider Allergies No Known Allergies REASON FOR VISIT 2 month follow up appt Encounters Encounter Location Date Provider Diagnosis Sj Kent MD [address] [facility] [address] [place] [phone] 10/22/2024 Sj Kent Plan Of Treatment Next Appt Details Provider Name:Sj Andrade ier, 07/30/2025 02:30:00 PM, [address], [address] [facility], [place], [place], [phone], Progress Notes * Lindsay CRUZ ADOB:1964 (60 yo F)Acc No.[id number]:10/22/2024 Progress Notes Patient: Shi Lindsay LINDQUIST Provider: Hussain Kent MD :1965 A ge:59 Y S ex:Female Date:10/22/2024 Address:[address] [place] [address] [facility] Subjective: * Chief Complaints: * 1 . 2 month follow up appt. * ROS: G eneral/Constitutional: Denies C hills. D enies F atigue. D enies F ever. D enies H eadache. E NT: Denies S ore throat. R espiratory: Denies C ough. D enies S hortness of breath at rest. D enies S hortness of breath with exertion. G astrointestinal: Denies D iarrhea. D enies N ausea. * Medical History: colonoscopy with Dr. Serrano; Colonoscopy 10/28/20 - Dr. Serrano (repeat 5 years). * Allergies: N .K.D.A. Objective: * Vitals: Assessment: Plan: * Treatment: * * The named appointment provid er may or may not be the originator of this progress note, and it is not deemed complete until electronically signed by the appointment provider. Sign off status: Pending * Provider: Hussain Kent MD Date: 12/23/2023 Generated for Celia blake/Tiffani/Staceyitting on: 0 07/23/2025 12:47 PM EDT
--- OUTSIDE RECORDS SUMMARY | 2025-07-23 03:15 | XMS_ITS ---
Author Organization Sj Kent MD Address [address] [place] [phone] Care Team Providers Care Dedicated Driver Name Role Phone Sj Kent Primary Care Provider [phone] REASON FOR VISIT yearly fasting labs Encounters Encounter Location Date Provider Diagnosis Sj Kent MD [address] [place] [phone] 07/23/2025 Sj Kent Blood tests for routine general physical examination Z00.00 ; Elevated cholesterol E78.00 and Vitamin D deficiency E55.9 Assessments Encounter Date Diagnosis (ICD Code) Assessment Notes Treatment Notes Treatment Clinical Notes Section Notes 07/23/2025 Blood tests for routine general physical examination (ICD-10 - Z00.00) 07/23/2025 Elevated cholesterol (ICD-10 - E78.00) 07/23/2025 Vitamin D deficiency (ICD-10 - E55.9) Plan Of Treatment Pending Test Test Name Order Date Complete Blood Count Auto Diff Comprehensive [place]. Panel Fast Lipid Panel 07/23/2025 Vitamin D 25-OH Total 07/23/2025 UA ClnCatch+Micro w/rflx Cult 07/23/2025 Next Appt Details Provider Name:Sj Andrade ier, 07/30/2025 02:30:00 PM, [address] [facility], [address], [place], [place], [phone], Progress Notes * Lindsay CRUZ ADOB:1964 (60 yo F)Acc No.[id number]:07/23/2025 Progress Note Patient: Lindsay CUMMINS Provider: Hussain Kent MD :1965 A ge:60 Y S ex:Female Date:07/23/2025 Address:[address] [place], [place] [phone] Subjective: * Chief Complaints: * 1 . Yearly fasting labs. * Medical History: Objective: * Vitals: Assessment: * Assessment: 1. B lood tests for routine general physical examination - Z00.00 (Primary) 2 .?Elevated cholesterol - E78.00 3 . V itamin D deficiency - E55.9 Plan: * Treatment: 2. E levated cholesterol L AB: Complete Blood Count Auto Diff L AB: Comprehensive [place]. Panel Fast L AB: Lipid Panel L AB: Vitamin D 25-OH Total L AB: UA ClnCatch+Micro w/rflx Cult 3. V itamin D deficiency L AB: Complete Blood Count Auto Diff L AB: Comprehensive [place]. Panel Fast L AB: Lipid Panel L AB: Vitamin D 25-OH Total L AB: UA ClnCatch+Micro w/rflx Cult * Procedure Codes: 3 6415 VENIPUNCT, ROUTINE* * * The named appointment provid er may or may not be the originator of this progress note, and it is not deemed complete until electronically signed by the appointment provider. Sign off status: Pending * Provider: Hussain Kent MD Date: 07/23/2025 Generated for Celia blake/Tiffani/Staceyitting on: 07/23/2025 12:48 PM EDT
[2025-07-23 12:20] LABS: MANUAL DIFF FLAG NO
--- OUTSIDE RECORDS SUMMARY | 2025-07-23 12:48 | XMS_ITS | Patient Health Record ---
Author Organization Sj Kent MD Address [address] [place] [phone] Care Team Providers Care Lotus Notes Administrator Name Role Phone Sj Kent Primary Care Provider Allergies No Known Allergies Reason For Referral No Information Medications Medication SIG (Take, Route, Frequency, Duration) Notes Start Date End Date Status Cyclobenzaprine HCl 5 MG 1 tablet as nee ded Orally Three times a day Not-Taking Escitalopram Oxalate 10 MG 1 tablet Oral ly Once a day for 30 day(s) 08/27/2024 Active Cyclobenzaprine HCl 5 MG 1 tablet at bed time as needed Orally twice a day for 10 days 03/06/2024 Not-Taking Amoxicillin-Pot Clavulanate 875-125 MG 1 tablet Orally every 12 hrs for 10 day(s) 10/29/2022 Not-Taking Ibuprofen 200 MG 1 tablet with food o r milk as needed Orally Three times a day Active Meloxicam 15 MG 1 tablet Orally Once a day for 30 days Not-Taking Escitalopram Oxalate 5 MG 1 tablet Orall y Once a day for 30 days 09/10/2024 Active Nystatin-Triamcinolone 766117-1.1 UNIT/GM 1 application Externally Twice a day for 10 days 07/31/2021 Not-Taking Doxycycline Hyclate 100 MG 1 capsule Ora lly Twice a day for 14 days 04/27/2022 Not-Taking Immunizations Vaccine Route Administration Date Status Comme nts Covid Vaccine Unknown 12/23/2020 Administered Moderna Covid Vaccine Unknown 01/20/2021 Administered Moderna SARS-COV-2 Moderna Unknown 12/14/2021 [address]ered [facility] TDaP Unknown 12/19/2023 Administered [facility] p er the patient. Fluarix Quadrivalent Unknown 02/07/2021 Refused Fluarix Quadrivalent - 150 Unknown 08/27/2024 Refused Social History Tobacco Use: Social History Observation Description Date Details (start date - stop date) Former Smoker NA - NA Tobacco Use/Smoking Question Answer Notes Patient is a former smoker How long has it been since y ou last smoked? > 10 years Additional Findings: Tobacco Non-User Fo rmer smoker, currently using no form of tobacco Alcohol Screen Question Answer Notes Did you have a drink containing alcohol in the p ast year? No Points 0 Interpretation Negative Problems Problem Type SNOMED Code ICD Code Onset Dates Problem Status W/U Status Risk Notes Problem 642636679 Tubular adenoma (D36.9) Active confirmed Problem 24706339 Restless leg syndrome (G25.81) Active confirmed Problem 16210020 Vitamin D deficiency (E55.9) Active confirmed Problem 821533554 Cervical disc disease (M50.90) Active confirmed Problem 69787662 Dysthymia (F34.1) Active confirmed Problem 87025964 Sjogrens syndrom e (M35.00) Active confirmed Problem 67854601 Elevated cholesterol (E78.00) Active confirmed Problem 873628155 Osteopenia determined by x-ray (M85.80) Active confirmed Problem 040949964 Mild intermitten t asthmatic bronchitis with acute exacerbation (J45.21) Active confirmed Vital Signs Blood pressure diastolic 70 mm Hg 09/10/2024 nahid ght is down 3 pounds since 08-27-24 Height 64 in 09/10/2024 weight is down 3 pounds since 08-27-24 Blood pressure systolic 138 mm Hg 09/10/2024 weig ht is down 3 pounds since 08-27-24 Weight 165 lbs 09/10/2024 weight is down 3 pounds since 08-27-24 BMI 28.32 kg/m2 09/10/2024 weight is down 3 pounds since 08-27-24 Encounters Encounter Location Date Provider Diagnosis Sj Kent MD [address] [place], [place] [phone] 07/23/2025 Sj Kent Blood tests for routine general physical examination Z00.00 ; Elevated cholesterol E78.00 and Vitamin D deficiency E55.9 [address]j Kent MD [address] [place], [place] [phone] 08/27/2024 Sj Kent Dysthymia F34.1 Sj Kent MD [address] [facility] [address] [place], [place] [phone] 09/10/2024 Sj Kent Dysthymia F34.1 and Lethargy R53.83 Assessments Encounter Date Diagnosis (ICD Code) Assessment Notes Treatment Notes Treatment Clinical Notes Section Notes 07/23/2025 Blood tests for routine general physical examination (ICD-10 - Z00.00) 08/27/2024 Dysthymia (ICD-10 - F34.1) patient verbalized understanding pf medication and directions for use 09/10/2024 Dysthymia (ICD-10 - F34.1) patient verbalized understanding of medication ad directions for use 09/10/2024 Lethargy (ICD-10 - R53.83) will continue to monitor hopefully by decreasing the meds will have the benefits without the side effects 07/23/2025 Elevated cholesterol (ICD-10 - E78.00) 07/23/2025 Vitamin D deficiency (ICD-10 - E55.9) Plan Of Treatment Pending Test Test Name Order Date Electrocardiogram (EKG) 06/29/2016 Complete Blood Count Auto Diff 5 Comprehensive [place]. Panel Fast 5 Lipid Panel 07/23/2025 Vitamin D 25-OH Total 07/23/2025 UA ClnCatch+Micro w/rflx Cult 07/23/2025 Next Appt Details Provider Name:Sj feng, 07/30/2025 02:30:00 PM, [address] [facility], [address], [place], [place], [phone], Insurance Providers Payer Name Payer Address Payer Phone Subscriber Number Group Number Insured Name Patient Relationship to Insured Coverage Start Date Coverage End Date [facility] [address] [place] [id number] [phone] [id number] Lindsay Sarabia Self - patient is the insured Medical (General) History Medical History History ICD Code 07/13/[address] Serrano; Colonoscopy 10/28/20 - Dr. Serrano (repeat 5 years)
--- OUTSIDE RECORDS SUMMARY | 2025-07-23 12:48 | XMS_ITS | Patient Health Record ---
Author Organization [facility] Address [address] [place] [address] Care Team Providers Care Car Wiper Name Role Phone Sj Kent MD Primary Care Provider Levon Drake Unavailable [phone] Reason For Referral No Information Problems Problem Type SNOMED Code ICD Code Onset Dates Problem Status W/U Status Risk Notes Problem Screening for malignant neoplasm of colon (283591055) Encounter for screening for malignant neoplasm of colon (Z12.11) Active confirmed Problem History of adenomatous polyp of colon (769637758) History of adenomatous polyp of colon (Z86.010) Active confirmed Problem Preprocedural examination (220543083137721) Preprocedural examination (Z01.818) Active confirmed Plan Of Treatment Future Test Test Name Order Date COLONOSCOPY 04/29/2015 COLONOSCOPY 09/20/2020 Insurance Providers Payer Name Payer Address Payer Phone Subscriber Number Group Number Insured Name Patient Relationship to Insured Coverage Start Date Coverage End Date [facility](N o referral needed) [address] [place] [id number] IRVING CHOI Self - patient is the insured Medical (General) History Medical History History ICD Code Cervical cancer---hysterectomy Denies AL,DM,CVA,Lung disease,renal dise ase Sjogren's syndrome Colonscopy 06/2015- 1 small tubular adeno ma removed Surgical History Surgery Date(Month/Year) Hysterectomy as above 1991
[2025-07-23 13:00] LABS: Hematocrit 44.3 % (37.0-47.0); Hemoglobin 14.4 g/dl (12.0-16.0); Imm Gran Abs Auto 0.01 X10*3/uL (0.00-0.03); Imm Gran Pct Auto 0.2 % (0.0-0.4); Lymphocytes Absolute Auto 1.5 X10*3/uL (1.2-4.9); Mean Corpuscular HGB Conc 32.5 g/dl (31.0-35.0); Mean Corpuscular Hemoglobin 30.5 pg (27.0-33.0); Mean Corpuscular Volume 93.9 fL (80.0-98.0); NRBC Abs Auto 0.000 X10*3/uL (0.0-0.012); NRBC Pct Auto 0.0 /100WBC (0.0-0.2); Platelet Count 285 X10*3/uL (160-400); Red Blood Count 4.72 X10*6/uL (4.20-5.50); White Blood Count 5.4 X10*3/uL (4.8-10.8)
[2025-07-23 13:02] LABS: Appearance Urine Clear; Glucose Urine UA Negative (Negative); PH 5.0 (5.0-9.0); Specific Gravity - Urine 1.020 (1.005-1.025)
[2025-07-23 13:12] LABS: Alanine Aminotransferase 14 U/L (0-31); Albumin Level 4.4 g/dL (3.5-5.0); Alkaline Phosphatase 36 U/L (39-117); Anion Gap 11 (12-20); Aspartate Amino Transferase 27 U/L (5-31); Blood Urea Nitrogen 17 mg/dL (9-16); Calcium 9.5 mg/dL (8.4-10.2); Carbon Dioxide 26 mmol/L (22-29); Chloride 109 mmol/L (96-108); Cholesterol 244 mg/dL (<200); Estimated Glomerular Filt Rate > 60; HDL Cholesterol 66 mg/dL (>40); Potassium 4.1 mmol/L (3.3-5.1); Sodium 142 mmol/L (135-145); Total Protein 7.2 g/dL (6.5-8.0); Triglycerides 98 mg/dL (<150)
== END 2025-07-23 12:16 | disposition home or self-care (01) ==
LOC: HO.LNP 12:15
PROVIDERS: Visit Provider Internal Medicine
DX: Z00.00 Encounter for general adult medical examination without abnormal findings (principal); E78.00 Pure hypercholesterolemia, unspecified; E55.9 Vitamin D deficiency, unspecified
CPT/HCPCS: 80053; 80061; 81001; 82306; 85025